=== PATIENT | male | born 1940 | race African-American/Black ===

== ENCOUNTER 2018-10-19 22:40 | Emergency (ER) | payer OTHER ==
[~2018-10-19] VITALS: Ht 174 cm; Wt 63.2 kg
[2018-10-19] MEDS ORDERED: ONDANSETRON (ODT) 4 MG TAB ODT STA (22:43)
[2018-10-19 22:44] VITALS: Ht 174 cm; Wt 63.2 kg
[2018-10-19] MEDS ORDERED: HYDROCODONE/APAP (5/325) TAB PO ONE (23:00)
[2018-10-20] MEDS ORDERED: HYDR-4011 PO (00:48)
[2018-10-20] MEDS ORDERED: ONDA4TAB14 PO (00:48)
[2018-10-20] MEDS ORDERED: DOCU-144 PO (00:48)
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
[2018-10-20 01:30] VITALS: BP 156/89; PULSE 98; RESP 20
== END 2018-10-20 01:30 | disposition home or self-care (01) ==
LOC: E/R 22:40
DX: S22.32XA Fracture of one rib, left side, initial encounter for closed fracture (principal); R40.2142 Coma scale, eyes open, spontaneous, at arrival to emergency department; R40.2362 Coma scale, best motor response, obeys commands, at arrival to emergency department; R40.2252 Coma scale, best verbal response, oriented, at arrival to emergency department; R94.02 Abnormal brain scan; W51.XXXA Accidental striking against or bumped into by another person, initial encounter; Y92.009 Unspecified place in unspecified non-institutional (private) residence as the place of occurrence of the external cause
CPT/HCPCS: 70450; 71045; 73030; 93005